=== PATIENT | female | born 1995 | race African-American/Black ===

== ENCOUNTER 2019-12-18 13:38 | Emergency (ER) | payer OTHER ==
[2019-12-18 14:29] LABS: Bilirubin Negative (Negative); Blood, Urine Negative (Negative); Clarity Clear (Clear); Glucose, Urine (Dipstick) Negative (Negative); Ketone, Urine Negative (Negative); Leukocyte Trace (Negative); Nitrite Negative (Negative); Protein, Urine (Dipstick) Negative (Neg-Trace); Specific Gravity, Urine 1.025 (1.005-1.030); pH, Urine 6.5 (5.0-9.0)
[2019-12-18 14:37] LABS: RBC/HPF 0-3 HPF (0-3)
[2019-12-18 14:38] LABS: Bacteria/HPF Rare-Few HPF (None Seen)
[2019-12-18 14:46] LABS: BHCG - Serum Negative (NEGATIVE); Pregs Control Bar Appear? YES (CONTROL BAR)
[2019-12-18 14:49] LABS: #Basophils 0.1 thou/uL (0.0-0.2); #Eosinphils 0.1 thou/uL (0.0-0.7); #Lymphocytes 2.7 thou/uL (1.20-3.40); #Monocytes 0.4 thou/uL (0.11-0.59); %Basophils 1.1 % (0.0-1.0); %Lymphocytes 37.5 % (21.0-51.0); %Monocytes 4.8 % (0.0-10.0); %Neutrophils 55.6 % (42.0-75.0); Hemoglobin 11.9 g/dL (12.0-16.0); Mean Corpuscular HGB CONC 30.1 g/dL (32.0-36.0); Mean Corpuscular Hemoglobin 26.4 pg (27.0-31.0); Mean Corpuscular Volume 87.6 fL (78.0-98.0); Mean Platelet Volume 9.5 fL (7.4-10.4); Platelet Count 293 thou/uL (130-400); RBC Distribution Width 13.9 % (11.5-14.5); White Blood Cell (WBC) Count 7.2 thou/uL (4.8-10.8)
[2019-12-18 15:03] LABS: ALT (SGPT) 13 U/L (8-55); AST (SGOT) 11 U/L (5-34); Albumin 4.2 g/dL (3.5-5.0); Alkaline Phosphatase 58 U/L (40-110); Anion Gap 14 mmol/L (10-20); BUN (Urea Nitrogen) 7 mg/dL (7.0-18.7); Bilirubin, Total 0.6 mg/dL (0.2-1.2); Calc. Creatinine Clearance 0 mL/min (70-130); Calcium 9.5 mg/dL (7.8-10.44); Carbon Dioxide 26 mmol/L (22-29); Chloride 105 mmol/L (98-107); Estimated GFR-MDRD Greater than 90; Globulin 3.2 g/dL (2.4-3.5); Glucose 73 mg/dL (70-105); Lipase 23 U/L (8-78); Potassium 3.7 mmol/L (3.5-5.1); Protein, Total 7.4 g/dL (6.0-8.3); Sodium 141 mmol/L (136-145)
== END 2019-12-18 15:50 | disposition home or self-care (01) ==
LOC: NAV ERS 13:38
DX: R10.30 Lower abdominal pain, unspecified (principal); R19.7 Diarrhea, unspecified; F31.9 Bipolar disorder, unspecified; J45.909 Unspecified asthma, uncomplicated; I10 Essential (primary) hypertension; Z79.899 Other long term (current) drug therapy
CPT/HCPCS: 80053; 81003; 81015; 83690; 84703; 85025; 87086; 99284

== ENCOUNTER 2020-06-14 15:14 | Emergency (ER) | payer OTHER ==
--- NOTE | 2020-06-14 18:05 | RAD ---
RIGHT HIP TWO VIEWS: 06/14/20 HISTORY: Hip pain, status post fall off a horse a few months ago. Persistent pain since that time. 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 There is no signs of fracture or dislocation. IMPRESSION: No evidence of fracture. POS: [facility]
== END 2020-06-14 16:40 | disposition home or self-care (01) ==
LOC: NAV ERS 15:14
DX: M25.551 Pain in right hip (principal); M54.41 Lumbago with sciatica, right side; I10 Essential (primary) hypertension; J45.909 Unspecified asthma, uncomplicated; D57.1 Sickle-cell disease without crisis

== ENCOUNTER 2020-07-25 08:35 | Emergency (ER) | payer OTHER ==
[2020-07-25] MEDS ORDERED: Iopamidol 370 76% 100 ML VIAL ONE (09:00)
[2020-07-25] MEDS ORDERED: Ondansetron PF 4 MG/2 ML Vial ONE (09:28)
[2020-07-25] MEDS ORDERED: Morphine 4 MG/ML VIAL ONE (09:28)
[2020-07-25 09:43] LABS: Hemoglobin 13.2 g/dL (12.0-16.0); Mean Corpuscular HGB CONC 30.2 g/dL (32.0-36.0); Mean Corpuscular Hemoglobin 27.1 pg (27.0-31.0); Mean Corpuscular Volume 89.7 fL (78.0-98.0); Mean Platelet Volume 8.9 fL (7.4-10.4); Platelet Count 226 thou/uL (130-400); RBC Distribution Width 13.4 % (11.5-14.5); Red Blood Cell (RBC) Count 4.85 mill/uL (4.20-5.40); White Blood Cell (WBC) Count 5.4 thou/uL (4.8-10.8)
[2020-07-25 09:48] LABS: BHCG - Serum Negative (NEGATIVE); Pregs Control Bar Appear? YES (CONTROL BAR)
[2020-07-25 09:52] LABS: ALT (SGPT) 13 U/L (8-55); AST (SGOT) 13 U/L (5-34); Albumin 3.9 g/dL (3.5-5.0); Alkaline Phosphatase 58 U/L (40-110); Anion Gap 13 mmol/L (10-20); BUN (Urea Nitrogen) 10 mg/dL (7.0-18.7); Bilirubin, Total 0.5 mg/dL (0.2-1.2); Calc. Creatinine Clearance 0 mL/min (70-130); Calcium 8.9 mg/dL (7.8-10.44); Carbon Dioxide 25 mmol/L (22-29); Chloride 105 mmol/L (98-107); Globulin 3.2 g/dL (2.4-3.5); Glucose 92 mg/dL (70-105); Lipase 24 U/L (8-78); Potassium 4.3 mmol/L (3.5-5.1); Protein, Total 7.1 g/dL (6.0-8.3); Sodium 139 mmol/L (136-145)
[2020-07-25 09:59] LABS: Lymphocytes 37 % (21-51); MDiff Complete? YES; Monocytes 2 % (0-10); Neutrophil 41 % (42-75); Platelet Morphology Comment Appears Adequate; Reactive Lymphocytes 19 % (0-10); Stomatocytes SLIGHT = 2-5 cells (100X) (0-1/hpf)
[2020-07-25 10:01] LABS: Reticulocyte Count 1.55 % (0.45-2.28)
[2020-07-25 11:58] LABS: Bilirubin Negative (Negative); Blood, Urine Negative (Negative); Clarity Clear (Clear); Glucose, Urine (Dipstick) Negative (Negative); Ketone, Urine Negative (Negative); Leukocyte Negative (Negative); Nitrite Negative (Negative); Protein, Urine (Dipstick) Negative (Neg-Trace); Specific Gravity, Urine 1.015 (1.005-1.030); Urobilinogen 0.2 mg/dL (Less than 2); pH, Urine 5.5 (5.0-9.0)
== END 2020-07-25 11:25 | disposition short-term general hospital (02) ==
LOC: NAV ERS 08:35
DX: R10.10 Upper abdominal pain, unspecified (principal); R94.31 Abnormal electrocardiogram [ECG] [EKG]; I10 Essential (primary) hypertension; J45.909 Unspecified asthma, uncomplicated; D57.1 Sickle-cell disease without crisis; Z79.899 Other long term (current) drug therapy
CPT/HCPCS: 74177; 80053; 81003; 83605; 83690; 84484; 84703; 85025; 85046; 93005; 94760; 96374; 96375; J2270; J2405; Q9967

== ENCOUNTER 2020-07-26 07:54 | Emergency (ER) | payer OTHER ==
[2020-07-26 21:06] LABS: SARS-CoV-2 PCR by NAA Not Detected (NotDetected)
== END 2020-07-26 09:00 | disposition home or self-care (01) ==
LOC: NAV ERS 07:54
DX: R10.10 Upper abdominal pain, unspecified (principal); R11.2 Nausea with vomiting, unspecified; Z20.822 Contact with and (suspected) exposure to COVID-19; I10 Essential (primary) hypertension; J45.909 Unspecified asthma, uncomplicated; D57.1 Sickle-cell disease without crisis
CPT/HCPCS: 87635; 99283; U0003; U0005

== ENCOUNTER 2020-08-11 12:21 | Emergency (ER) | payer OTHER ==
[2020-08-11 13:45] LABS: BHCG - Serum Negative (NEGATIVE); Pregs Control Bar Appear? YES (CONTROL BAR)
== END 2020-08-11 14:25 | disposition home or self-care (01) ==
LOC: NAV ERS 12:21
DX: S39.012A Strain of muscle, fascia and tendon of lower back, initial encounter (principal); I10 Essential (primary) hypertension; Z79.899 Other long term (current) drug therapy; V49.9XXA Car occupant (driver) (passenger) injured in unspecified traffic accident, initial encounter
CPT/HCPCS: 36415; 72100; 84703

== ENCOUNTER 2020-08-30 09:00 | Emergency (ER) | payer OTHER ==
[2020-08-30 09:39] LABS: Bilirubin Negative (Negative); Blood, Urine Small (Negative); Clarity Clear (Clear); Glucose, Urine (Dipstick) Negative (Negative); Ketone, Urine Negative (Negative); Leukocyte Trace (Negative); Nitrite Negative (Negative); Protein, Urine (Dipstick) Negative (Neg-Trace); Urobilinogen 0.2 mg/dL (Less than 2); pH, Urine 6.5 (5.0-9.0)
[2020-08-30 09:44] LABS: Pregnancy Test - Urine (BHCG) Negative (Negative); Pregu Control Background? CLEAR/WHITE (CLR/WHITE); Pregu Control Bar Appear? YES (CONTROL BAR); Specific Gravity 1.025 (1.002-1.036)
[2020-08-30 09:53] LABS: RBC/HPF 0-3 HPF (0-3); Squamous Epithelial None Seen HPF (0-3); WBC/HPF 0-3 HPF (0-3)
== END 2020-08-30 10:05 | disposition home or self-care (01) ==
LOC: NAV ERS 09:00
DX: R10.33 Periumbilical pain (principal); I10 Essential (primary) hypertension; Z79.899 Other long term (current) drug therapy
CPT/HCPCS: 81003; 81015; 81025; 87491; 87591; 99284

== ENCOUNTER 2020-11-09 15:49 | Emergency (ER) | payer OTHER ==
[2020-11-10 18:44] LABS: SARS-CoV-2 PCR by NAA Not Detected (NotDetected)
== END 2020-11-09 16:16 | disposition home or self-care (01) ==
LOC: NAV ERS 15:49
DX: R05 Cough (principal); M79.10 Myalgia, unspecified site; R43.8 Other disturbances of smell and taste; Z20.822 Contact with and (suspected) exposure to COVID-19; I10 Essential (primary) hypertension; J45.909 Unspecified asthma, uncomplicated; D57.1 Sickle-cell disease without crisis; Z79.899 Other long term (current) drug therapy
CPT/HCPCS: 99283; U0003; U0005